=== PATIENT | female | born 1970 | race Caucasian/White ===

== ENCOUNTER 2017-12-09 06:14 | Day surgery (SDC) | payer BC, SELFPAY ==
[2017-12-06 10:21] VITALS: BMI 34.9
[2017-12-09] VITALS (12 sets, daily range): BP systolic 139–157; BP diastolic 73–90; PULSE 91–105; RESP 18–20; TEMP 36.2–43; O2SAT 95–97
[2017-12-09 07:23] LABS: Urine Pregnancy, HCG Qual. Negative (Negative)
--- NOTE | 2017-12-09 07:41 | HMH.ANESCL ---
[facility] Anesthesia Checklist - Structural Data Planned Operative Procedure/s: right shoulder arthroscopy, RCR Consent for Planned Operative Procedure(s) Verified: Yes Verified Documents: Surgical Consent, History and Physical - NPO Status Verified Time NPO: 00:00 - Airway Assessment C-Spine Mobility Assessed: Yes (MP2) TMJ Mobility Assessed: Yes Dentition: Good Dentition - Anesthesia Plan Anesthesia Risk discussed: Yes Anesthesia Plan: Verified ASA Class: II Anesthesia Type: General - Preoperative Comments Pre-Operative Comments: Interscalene block [facility] Anesthesia HX I have reviewed the patient's past medical history: Yes Medical History: Denies:: Cancer, Diabetes Mellitus Type 1, Diabetes Mellitus Type 2, MRSA, Seizures Other Medical History: Reports: Hypothyroidism. Denies: Blood Transfusion Reaction Other Surgeries: No: Pacemaker Amputation: No Fractures: No Comment: bud *Family Hx:: Heart Attack
--- NOTE | 2017-12-09 10:50 | HMH.ANESI ---
[facility] Anesthesia Record Part I Intake, IV Amount: 1,000 Estimated blood loss (mL): 25 Urine output (mL): 800 Blood Pressure: 142/74 SaO2: 97 Pulse Rate: 102 Respiratory Rate: 20 Temperature: 97.1 F Patient is:: Drowsy, Nasal O2, Stable Stable to PACU at:: 10:47
--- NOTE | 2017-12-09 10:52 | P.PN_ITS ---
[facility] Anesthesia Record Part II Discharge Time: 11:17 Destination: Surgical Day Care (OP Surgery) PACU nurse assessment reviewed?: Yes Patient Condition:: Good Anesthesia Complications:: None
--- NOTE | 2017-12-09 10:58 | HMH.OPNOTE ---
Date of procedure: 12/10/17 Pre-op Diagnosis:: R Rotator Cuff Tear R shoulder impingement syndrome Degenerative tear, right shoulder posterior labrum Post-op diagnosis:: same (Same) Procedure performed:: R Rotator Cuff Tear repair. arthroscopic, and R shoulder arthroscopic subacromial decompression of impingement syndrome Arthroscopic debridement, degenerative tear right posterior labrum Surgeon:: Mike Ingram MD Anesthesia: GETA, regional Estimated blood loss (mL): 5 Operative findings:: See operative note. Examination under anesthesia showed the glenohumeral joint to be stable arthroscopic photographs are as follows 001 and 002 demonstrate the rotator cuff tear from the bursal side 003 demonstrates the superior aspect of the glenoid and a portion of the tear from the articular side. 004 demonstrates the biceps tendon 005 through 008 demonstrate the anterior labrum, probing with a spinal needle, and the inferior labrum at approximately the 5 o'clock position for the last photograph. 009 demonstrates a small chondral lesion on the glenoid being removed with a shaver... 010 demonstrates probing of the anterior labrum. 011 shows debridement of the rotator cuff. [id number] shows the suture construct of the rotator cuff repair 016 shows partial debridement of the subacromial space and is taken to demonstrate the prominent anterior spur on the acromion. Unfortunately, additional photographs showing the completed subacromial decompression did not materialize Operative note:: The patient was taken to the operating room and placed in the supine position and carefully positioned on a beachchair positioner. All bony prominences were well-padded. She was prepped and draped in the usual sterile fashion. The operative site was sealed and a posterior portal site selected. A spinal needle was directed into the glenohumeral joint and the joint itself insufflated with approximately 30 mL of normal saline. We then created the posterior portal, inserted the 4 mm arthroscope, and performed an initial examination. We noted that we had directed the scope to the subacromial space and immediately noted the rotator cuff tear. We photographed this, and then redirected the arthroscope into the glenohumeral joint. An examination of the glenohumeral joint was conducted. We created an anterior portal to allow debridement of prominent fraying of the posterior labrum and also to allow more complete evaluation of the superior and anterior labrum. We conducted examination of the biceps tendon, superior middle and inferior glenohumeral ligaments, subscapularis, inferior and posterior labrum, and articular cartilage of both the glenoid and the humeral head. We evaluated the rotator cuff from the articular side as well. The anterior portal was created, we introduced a probe and checked the integrity of the labrum and found no evidence of a tear. There was some fraying of the biceps tendon but no instability. There was prominent fraying of the posterior labrum and introduced a 4 mm shaver and removed the frayed sections of the labrum posteriorly. We then withdrew the shaver and placed in the arthroscope in the subacromial space. We debrided bursa as needed to evaluate the rotator cuff tear and also cleared it from the subacromial space in anticipation of a subacromial decompression. We debrided the torn edge of the rotator cuff. This is a small crescent shaped tear in the supraspinatus with minimal retraction. We visualized the anchor point and elected to use a single swivel lock suture with a mattress stitch. The shaver was used to debride and roughen the bone in preparation for placing the footprint of the cuff onto it. A [employer] suture passer was used to place an [employer] fiber tape in a mattress fashion. We then selected an insertion point for the anchor. The arm was adducted and an entry awl used. We threaded the anchor in place the anchor however noted insecure purchas
--- NOTE | 2017-12-09 11:23 | P.OP_ITS ---
Date of procedure: 12/10/17 Pre-op Diagnosis:: R Rotator Cuff Tear R shoulder impingement syndrome Degenerative tear, right shoulder posterior labrum Post-op diagnosis:: same (Same) Procedure performed:: R Rotator Cuff Tear repair. arthroscopic, and R shoulder arthroscopic subacromial decompression of impingement syndrome Arthroscopic debridement, degenerative tear right posterior labrum Surgeon:: Mike Ingram MD Anesthesia: GETA, regional Estimated blood loss (mL): 5 Operative findings:: See operative note. Examination under anesthesia showed the glenohumeral joint to be stable arthroscopic photographs are as follows 001 and 002 demonstrate the rotator cuff tear from the bursal side 003 demonstrates the superior aspect of the glenoid and a portion of the tear from the articular side. 004 demonstrates the biceps tendon 005 through 008 demonstrate the anterior labrum, probing with a spinal needle, and the inferior labrum at approximately the 5 o'clock position for the last photograph. 009 demonstrates a small chondral lesion on the glenoid being removed with a shaver... 010 demonstrates probing of the anterior labrum. 011 shows debridement of the rotator cuff. [id number] shows the suture construct of the rotator cuff repair 016 shows partial debridement of the subacromial space and is taken to demonstrate the prominent anterior spur on the acromion. Unfortunately, additional photographs showing the completed subacromial decompression did not materialize Operative note:: The patient was taken to the operating room and placed in the supine position and carefully positioned on a beachchair positioner. All bony prominences were well-padded. She was prepped and draped in the usual sterile fashion. The operative site was sealed and a posterior portal site selected. A spinal needle was directed into the glenohumeral joint and the joint itself insufflated with approximately 30 mL of normal saline. We then created the posterior portal, inserted the 4 mm arthroscope, and performed an initial examination. We noted that we had directed the scope to the subacromial space and immediately noted the rotator cuff tear. We photographed this, and then redirected the arthroscope into the glenohumeral joint. An examination of the glenohumeral joint was conducted. We created an anterior portal to allow debridement of prominent fraying of the posterior labrum and also to allow more complete evaluation of the superior and anterior labrum. We conducted examination of the biceps tendon, superior middle and inferior glenohumeral ligaments, subscapularis, inferior and posterior labrum, and articular cartilage of both the glenoid and the humeral head. We evaluated the rotator cuff from the articular side as well. The anterior portal was created, we introduced a probe and checked the integrity of the labrum and found no evidence of a tear. There was some fraying of the biceps tendon but no instability. There was prominent fraying of the posterior labrum and introduced a 4 mm shaver and removed the frayed sections of the labrum posteriorly. We then withdrew the shaver and placed in the arthroscope in the subacromial space. We debrided bursa as needed to evaluate the rotator cuff tear and also cleared it from the subacromial space in anticipation of a subacromial decompression. We debrided the torn edge of the rotator cuff. This is a small crescent shaped tear in the supraspinatus with minimal retraction. We visualized the anchor point and elected to use a single swivel lock suture with a mattress stitch. The shaver was used to debride and roughen the bone in preparation for placing the footprint of the cuff onto it. A scorpion suture pa
--- NOTE | 2017-12-09 15:04 | PC.NURSE ---
1105-MEDICATED W/PHENERGAN 6.25MG IV ORDERED PER ANESTHESIA FOR NAUSEA. SEE MAR FOR DETAILS.
--- NOTE | 2017-12-09 15:19 | PC.NURSE ---
1127-PT REPORTS CONTINUED NAUSEA. MEDICATED PER ANESTHESIA W/PHENERGAN 6.25MG IV. SEE MAR FOR DETAILS.
--- NOTE | 2017-12-09 15:28 | PC.NURSE ---
1134-PT TRANSPORTED TO POST OP VIA STRETCHER W/RAILS UP AND LEFT IN CARE OF WALE HACKETT WITH BED LOCKED IN LOWEST POSITION. VSS. PT STABLE.
== END 2017-12-09 12:05 | disposition home or self-care (01) ==
PROVIDERS: Family Provider Family Medicine; PCP Family Medicine; Visit Provider Orthopaedic Surgery
PROC: (CPT 29827; principal; 2017-12-09 07:30)
DX: M75.41 Impingement syndrome of right shoulder (principal); M75.111 Incomplete rotator cuff tear or rupture of right shoulder, not specified as traumatic
CPT/HCPCS: 29827; 29823; 81025; 96374; C1713; J2405

== ENCOUNTER 2018-04-08 07:00 | Outpatient (RCR) | payer BC, SELFPAY ==
--- NOTE | 2017-12-31 09:32 | HMH.PTOPEV ---
Rehab Outpatient Evaluation Rehab OP Evaluation Start: 12/31/17 09:14 Freq: Status: Active Protocol: Document 12/31/17 09:15 TFRY (Rec: 12/31/17 09:29 TFRY [id number]) Electronically Signed By Neisha Sahu OT 12/31/17 09:15 Outpatient Therapy Subjective History Subjective History THIS IS A 47 YEAR OLD RIGHT HANDED FEMALE REFERRED TO OCCUPATIONAL THERAPY S/P RIGHT ROTATOR CUFF REPAIR, SAD. PATIENT STATES THAT SHE INJURIED HER SHOULDER IN 2016 AND UNDERWENT SURGERY ON December2017. Chief Complaint Pain Stiff Symptom Type Sharp Stabbing Shooting Symptoms Relieved By Rest/Positioning Symptoms Aggravated By Physical Activity Prior Functional Limitations None Current Functional Limitations Reaching Lifting Housework Dressing Symptom Description Activity Dependent Level of pain today (0-10) 2 Pain scale - at its best (0-10) 0 Pain scale - at its worst (0-10) 10 Shoulder/Elbow Eval Shoulder Objective Measurements Palpation Tenderness tenderness shoulder exam standard right Shoulder ROM Right Shoulder ROM Limitations Pain Shoulder Abduction Passive Range of 0-90 Motion (degrees) Shoulder Flexion Passive Range of Motion 0-80 (degrees) Shoulder External Rotation Passive Range NT of Motion (degrees) Shoulder Internal Rotation Passive Range WFL IN GRAVITY ELIM. of Motion (degrees) pain with passive ROM shoulder exam right standard decreased ROM shoulder exam standard right Shoulder MMT Shoulder Abduction Strength Grade 2+ Poor+ Shoulder Strength Reason Not Measured Orthopedic Precautions Elbow Objective Measurements Outpatient Therapy Assessment Impairments Problems/Impairmments Impaired Range of Motion Impaired Strength Impaired Lifting Impaired Dressing Impaired Shower/Bathing Impaired Household Care Impaired Work Activities Impaired Desk/Computer Activities Subjective C/O Pain Prognosis Rehab Potential Good Clinical Impression Consistent with Diagnosis Yes Short Term Goals Number of Weeks
--- NOTE | 2018-03-04 08:39 | HMH.RHREAS ---
Rehab Reassessment Rehab OP Re-assessment Start: 03/04/18 08:30 Freq: Status: Active Protocol: Document 03/04/18 08:30 TFRY (Rec: 03/04/18 08:38 TFRY [id number]) Electronically Signed By Neisha Sahu OT 03/04/18 08:30 Rehab Re-assessment Subjective Subjective It is 80% better. Objective Objective Notes Right Shoulder - AROM WFL throughout Right Shoulder - Strength - Flexion - 3+/5 Abduction - 3+/5 Internal Rotation - 3/3+/5 External Rotation - 3/3+/5 Pain - 4 on 0-10 scale ADL's independent per patient report Assessment Progress Assessment Progressing as Expected Assessment Notes AROM and strength have improved. Patient reports less pain. Patient goals met AROM and ADL goals are met. Goals Not Met Strength goal not met. Plan Plan Continue OT toward unmet goals . Frequency of Therapy 2x per week Duration of therapy 5 weeks Time and Billing Re-Eval Time 5 Re-Eval Billing Units 0 PHYSICIAN CERTIFICATION: I certify the specified therapy services for Daisy Fritz are required, authorized, and reviewed every 30 days.
== END 2018-04-08 07:01 | disposition home or self-care (01) ==
LOC: OT 07:00
PROVIDERS: Family Provider Family Medicine; PCP Family Medicine; Visit Provider Orthopaedic Surgery
DX: Z48.89 Encounter for other specified surgical aftercare (principal); Z98.890 Other specified postprocedural states
CPT/HCPCS: 97014; 97110; 97140; 97163; 97164; 97165; G0283

== ENCOUNTER 2024-03-11 12:56 | Outpatient (CLI) | payer OTHER, SELFPAY ==
--- NOTE | 2024-03-11 13:03 | CA_ITS ---
FINAL REPORT TECHNIQUE: Color Doppler, duplex Doppler and compression sonography of the right lower extremity venous system was performed. CLINICAL HISTORY: VARICOSE VEINS,PAIN RLE FINDINGS: There is no evidence of deep venous thrombosis from the level of the groin to the calf. The veins are patent and compressible. IMPRESSION: No evidence of deep venous thrombosis right lower extremity. Reviewed, Interpreted and Dictated by Rolo Emerson III, MD Transcribed by Abril Orr Authenticated and [facility]
== END 2024-03-11 23:59 | disposition home or self-care (01) ==
LOC: RT 13:01
PROVIDERS: PCP Emergency Medicine; Visit Provider Nurse Practitioner
DX: I83.813 Varicose veins of bilateral lower extremities with pain (principal)
CPT/HCPCS: 93971

== ENCOUNTER 2025-03-25 09:31 | Day surgery (SDC) | payer OTHER, SELFPAY ==
[2025-03-24 10:05] VITALS: BMI 39.3
[2025-03-25] VITALS (7 sets, daily range): BP systolic 104–145; BP diastolic 59–87; PULSE 69–87; RESP 16–17; TEMP 36.2–36.3; O2SAT 96–100
[2025-03-25] MEDS: LACTATED RINGERS 1000ML 1,000 ML 50 ML IV (10:20)
--- NOTE | 2025-03-25 10:40 | EXP.ANES.CKL ---
[facility] Disclaimer: The information contained in this section may have been updated after the patient was seen, as this information can be updated by other users. 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 current occupational exposures/hazards: No caffeine: Yes [facility] Anesthesia Checklist Patient Identification Patient Identification: Arm Band and Verbal (Name & ) Structural Data Admitted From: Home Planned Operative Procedure/s: colonoscopy Consent for Planned Operative Procedure(s) Verified: Yes Verified Documents: Surgical Consent NPO Status Verified Time NPO: 00:00 Chart Verification Results Verified: None Additional verifications Anesthesia Reactions: No Hx Blood Transfusions: No Blood Transfusion Reaction: No Previous Colonoscopy: No Airway Assessment Mallampati Score:: Class II C-Spine Mobility Assessed: Yes TMJ Mobility Assessed: No Dentition: Good Dentition Neurological Assessment Level of Consciousness: Awake, Alert and Appropriate Hx Seizures: No Numbness or tingling in extremities: No Anesthesia Plan Anesthesia Risk discussed: Yes Anesthesia Plan: Verified ASA Class: II Anesthesia Type: MAC
--- NOTE | 2025-03-25 11:02 | EXP.ANES.CKL ---
[facility] Disclaimer: The information contained in this section may have been updated after the patient was seen, as this information can be updated by other users. 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 Anesthesia Checklist Patient Identification Patient Identification: Arm Band and Verbal (Name & ) Structural Data Admitted From: Home Planned Operative Procedure/s: colonoscopy Consent for Planned Operative Procedure(s) Verified: Yes Verified Documents: Surgical Consent NPO Status Verified Time NPO: 00:00 Chart Verification Results Verified: None Additional verifications Patient : No Anesthesia Reactions: No Hx Blood Transfusions: No Blood Transfusion Reaction: No Airway Assessment Mallampati Score:: Class I C-Spine Mobility Assessed: Yes TMJ Mobility Assessed: No Dentition: Good Dentition Neurological Assessment Level of Consciousness: Awake, Alert and Appropriate Hx Seizures: No Numbness or tingling in extremities: No Anesthesia Plan Anesthesia Risk discussed: Yes Anesthesia Plan: Verified ASA Class: II Anesthesia Type: MAC
--- NOTE | 2025-03-25 11:20 | P.HP_ITS ---
History of Present Illness *Admission Date: 03/25/25 *Reason for visit:: Screening for colon cancer *History of present illness: Mrs. Fritz is a 54-year-old female who is here for initial screening colonoscopy. The examination is deemed medically necessary for screening colonoscopy. The rome devine has been seen, interviewed and examined prior to the procedure by both myself and the anesthesia provider. [facility] Disclaimer: The information contained in this section may have been updated after the patient was seen, as this information can be updated by other users. 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 current occupational exposures/hazards: No caffeine: Yes Have you lived/traveled outside US in past 30 days?: No Contact w/someone who lives/traveled outside US past 30 days?: No Exposure to someone with infectious disease in past 14 days?: No Do you have a fever (greater than 100.4 F or 38 C)?: No Have you tested positive for COVID-19: No Exposed to someone with COVID-19 in past 14 days?: No Do you have a sore throat?: No Do you have a cough?: No Do you have any weakness?: No Do you have any diarrhea?: No Are you experiencing any unusual bleeding?: No Do you have any muscle aches/pain?: No Do you have any abdominal pain?: No Are you experiencing loss of taste or smell?: No Other Medical History Have you received the Flu Vaccine for this season: Yes Have you received the Pneumonia Vaccine: No Review of Systems Review of Systems Review of systems (narrative): Negative *Cardiovascular Comments: Negative *Gastrointestinal Comments: Negative *Genitourinary Comments: Negative *Musculoskeletal Comments: Negative *Neurologic Comments: Negative Meds Home Medications and Allergies Home Medications ?Medication ?Instructions ?Recorded ?Confirmed ?Type levothyroxine 100 mcg tablet 100 mg PO DAILY hypothyroid 12/06/17 03/25/25 History atorvastatin 20 mg tablet 20 mg PO DAILY 12/06/21 03/25/25 History sodium,potassium,mag sulfates 17.5 See Rx Instructions PO .COMPLEX 01/01/25 03/25/25 Rx gram-3.13 gram-1.6 gram oral soln #354 mL (Suprep Bowel Prep Kit) New Prescriptions to Start Prescriptions: Allergies Allergy/AdvReac Type Severity Reaction Status Date / Time No Known Allergies Allergy Verified 12/06/21 18:12 Exam Data for Last 24 hours Vital signs and Labs for Last 24 Hours: Temp Pulse Resp BP Pulse Ox O2 Del Method 97.4 F L 78 16 140/87 96 Room Air 03/25/25 10:10 03/25/25 10:10 03/25/25 10:10 03/25/25 10:10 03/25/25 10:10 03/25/25 10:10 I & O for Last 24 hours: Intake & Output 03/22/25 03/23/25 03/24/25 03/25/25 23:59 23:59 23:59 23:59 Weight 215 lb *Routine HEENT Exam Head: Present normocephalic Eye: Present EOMI and PERRL ENT: Present mucous membranes moist *Routine Neck Exam Neck: Present supple *Routine Respiratory Exam Respiratory: Present CTA bilaterally *Routine Cardiovascular Exam Cardiovascular: Present RRR *Routine Abdominal Exam Abdominal: Present soft and normoactive bowel sounds; Absent tenderness *Routine Rectal Exam Rectal:: deferred *Routine Genitalia Exam Genitalia:: deferred *Routine Extremities Exam Extremities: Absent cyanosis, clubbing or edema *Routine Skin Exam Skin: Present warm; Absent rash *Routine Neurological Exam Neurological: Present alert and oriented X3 Assessment and Plan *Assessment and plan (1) Screening for colon cancer: Status: Acute Category: Medical Code(s): Z12.11 - Encounter for screening for malignant neoplasm of colon Plan A/P: 1. Screening for colon cancer is the preprocedural diagnosis. The patient will be anesthetized/sedated using MAC sedation. The patient has been seen and examined. Cardiac and lung assessment prior to the examination is stable. Proceed with planned screening colonoscopy.
--- NOTE | 2025-03-25 11:27 | HMH.PROCNOTE ---
[facility] Procedure Note Date: 03/25/25 Time: 11:41 Procedure Note:: Colonoscopy Procedure Report: Colonoscopy with cold snare polypectomy Endoscopist: Amari Aguilar II, MD Referring physician: Ina Mckeon MD, [address] [place] [id number]/Jojo Live M.D. Date of Procedure: March 25, 2025 Equipment: Olympus 190 variable stiffness pediatric colonoscope Sedation: MAC sedation Indication: Mrs. Fritz is a 54-year-old female who is here for initial screening colonoscopy. She reports no abdominal pain, weight loss, change in her bowel habits or rectal bleeding. She reports no family history of colon cancer. Procedure: Prior to the procedure, a history and physical exam was performed, and patient's medications and allergies were reviewed. The risks, benefits and alternatives of the sedation and procedure were discussed with the patient. All questions were answered and informed consent was obtained. The patient was brought to the procedure room. Patient identification and proposed procedure were verified by the physician and the nurse. The patient was placed in a left lateral decubitus position and the scope was passed under direct vision. Throughout the procedure, the patient's blood pressure, pulse, and oxygen saturations were monitored continuously. The colonoscopy was accomplished without difficulty. The patient tolerated the procedure well. Findings: On digital rectal examination there was normal rectal tone. There were no external hemorrhoids. The colonoscope was introduced through the anal canal to the rectum and advanced to the cecum. The ileocecal valve and appendiceal orifice were identified. The scope was advanced a short distance into the ileum which appeared grossly normal. The scope was then withdrawn into the colon. There was a single 4 mm polyp in the descending colon removed via cold snare polypectomy. The cecum, ascending, transverse, descending, sigmoid and rectum were grossly normal. There were no mucosal abnormalities identified. Upon retroflexion within the rectum there were grade 1-2 internal hemorrhoids with a small hypertrophied anal papilla. The preparation was excellent throughout with [place] Preparation Score of 9. The cecal time was 12 minutes. Impression: 1. Diminutive descending colon polyp (4 mm) Plan: I will follow-up the polyp histology and recommend repeat surveillance colonoscopy again in 7 years if the polyp is adenomatous.
== END 2025-03-25 12:18 | disposition home or self-care (01) ==
PROVIDERS: PCP Family Medicine; Visit Provider Internal Medicine Gastroenterology
PROC: 0DJD8ZZ Inspection of Lower Intestinal Tract, Via Natural or Artificial Opening Endoscopic (ICD-10-PCS; CPT 45378; principal; 2025-03-25 11:00)
DX: D12.4 Benign neoplasm of descending colon (principal); K64.8 Other hemorrhoids; Z12.11 Encounter for screening for malignant neoplasm of colon
CPT/HCPCS: 45385; J7120

== ENCOUNTER 2025-11-08 15:03 | Outpatient (CLI) | payer OTHER, SELFPAY ==
--- NOTE | 2025-11-08 | CA_ITS ---
FINAL REPORT TECHNIQUE: Multiple transverse and longitudinal images were performed of the right femoral-popliteal deep venous system with augmentation and compression maneuvers. CLINICAL HISTORY: Rt groin pain x 1 month. Pain is worse with sitting. Patient had bilateral lower extremity vein extraction 09/2024. HLD. FINDINGS: Right lower extremity duplex ultrasound demonstrates normal flow in the deep venous system. There is no abnormal echogenicity to suggest thrombus. There is normal compression and augmentation. IMPRESSION: No evidence of right DVT. Reviewed, Interpreted and Dictated by Asher Griffith MD Transcribed by Abril Orr Authenticated and [facility]
--- NOTE | 2025-11-08 15:34 | XR_ITS ---
PROCEDURE INFORMATION: Exam: XR Right Femur Exam date and time: 11/08/2025 3:37 PM Age: 55 years old Clinical indication: Pain; Thigh; Right; Additional info: Right inguinal pain TECHNIQUE: Imaging protocol: Radiologic exam of the right femur. Views: 2 views. COMPARISON: US - CA VENOUS DOPPLER LE RT 11/08/2025 3:20 PM FINDINGS: Limitations: Superior segments of the femur (head and neck) were not included. Bones/joints: The bone density is normal for this patient's age. No acutely displaced fractures. No joint dislocation. No aggressive osseous lesions. Soft tissues: No acute soft tissue findings. IMPRESSION: No acute findings.
--- NOTE | 2025-11-08 15:35 | XR_ITS ---
PROCEDURE INFORMATION: Exam: XR Right Hip Exam date and time: 11/08/2025 3:37 PM Age: 55 years old Clinical indication: Hip pain; Right hip; Inguinal pain TECHNIQUE: Imaging protocol: Radiologic exam of the right hip. Views: 2 or 3 views hip with pelvis when performed. COMPARISON: CR XR LUMBAR SPINE MIN 4V 11/08/2025 3:37 PM FINDINGS: Bones/joints: Mild osteoarthritis involving the bilateral hips, as manifested by mildly decreased joint space and marginal osteophyte formation. There are mild degenerative changes of the sacroiliac joints. Prominence/overriding of the bilateral acetabular roofs, more so on the right, as can be seen with pincer type femoroacetabular morphology. No acutely displaced fractures. No joint dislocation. No aggressive osseous lesions. Soft tissues: No acute soft tissue findings. Organs: IUD is present. IMPRESSION: 1. No acute findings. 2. Incidental findings as above.
--- NOTE | 2025-11-08 15:36 | XR_ITS ---
PROCEDURE INFORMATION: Exam: XR Lumbosacral Spine Exam date and time: 11/08/2025 3:37 PM Age: 55 years old Clinical indication: Low back pain; Additional info: Inguinal pain TECHNIQUE: Imaging protocol: Radiologic exam of the lumbosacral spine. Views: 4 or 5 views. COMPARISON: CR XR HIP RT 2-3V W/PELVIS 11/08/2025 3:37 PM FINDINGS: Bones/joints: No pars interarticularis defects. Normal anatomic alignment. The bone density is normal for this patient's age. Preserved intervertebral disc spaces. Small multilevel anterior osteophytes. The spinal canal is patent. Facet joints have mild degenerative hypertrophy and sclerosis. No acutely displaced fractures. No joint dislocation. No aggressive osseous lesions. Soft tissues: No acute soft tissue findings. Organs: IUD is present. Surgical clips are present in the right upper quadrant, consistent with previous cholecystectomy. IMPRESSION: 1. No acute findings. 2. Mild degenerative changes.
== END 2025-11-08 23:59 | disposition home or self-care (01) ==
LOC: RT 15:06
PROVIDERS: PCP Family Medicine; Visit Provider Nurse Practitioner
DX: M47.817 Spondylosis without myelopathy or radiculopathy, lumbosacral region (principal); M16.11 Unilateral primary osteoarthritis, right hip; M16.12 Unilateral primary osteoarthritis, left hip; M25.751 Osteophyte, right hip; M46.1 Sacroiliitis, not elsewhere classified; Z97.5 Presence of (intrauterine) contraceptive device; R10.31 Right lower quadrant pain; M79.2 Neuralgia and neuritis, unspecified
CPT/HCPCS: 72110; 73502; 73552; 93971

== ENCOUNTER 2025-11-12 16:38 | Outpatient (CLI) | payer OTHER, SELFPAY ==
--- NOTE | 2025-11-12 | MR_ITS ---
PROCEDURE INFORMATION: Exam: MR Right Lower Extremity Joint Without and With Contrast; Hip Exam date and time: 11/12/2025 4:44 PM Age: 55 years old Clinical indication: Pain; Hip; Right; Additional info: Worsening right hip pain TECHNIQUE: Imaging protocol: Magnetic resonance imaging of the right lower extremity joint without and with contrast. Exam focused on the hip. Contrast material: PROHANCE; Contrast volume: 20 ml; Contrast route: IV; COMPARISON: CR XR HIP RT 2-3V W/PELVIS 11/08/2025 3:37 PM FINDINGS: Bones/joints: No acute fracture or malalignment. No bone lesions. Joint spaces are unremarkable. Articular cartilage is normal. No joint effusion. Labrum: Unremarkable. No tear. Bursae: There is mild edema in both trochanteric bursae not significant bursal fluid. TENDONS: Tendons of iliopsoas group: Unremarkable. No evidence of tear. Tendons of medial compartment of thigh: Unremarkable. No evidence of tear. Tendons of lateral rotators of hip: Unremarkable. No evidence of tear. Tendons of gluteal group: Unremarkable. No evidence of tear. Soft tissues: Unremarkable. Reproductive: There is an IUD in the uterus. Small cervical nabothian cysts. Uterus and adnexa are unremarkable. IMPRESSION: 1. Mild edema in both trochanteric bursae without bursal effusion. 2. Otherwise unremarkable MRI.
[2025-11-12] MEDS: GADOTERIDOL INJ 20ML SYRINGE 20 ML IV (17:05)
== END 2025-11-12 23:59 | disposition home or self-care (01) ==
LOC: RAD 16:38
PROVIDERS: PCP Family Medicine; Visit Provider Nurse Practitioner
DX: R60.0 Localized edema (principal); R93.6 Abnormal findings on diagnostic imaging of limbs
CPT/HCPCS: 73723; A9576

== ENCOUNTER 2025-11-22 07:35 | Outpatient (CLI) | payer OTHER, SELFPAY ==
--- NOTE | 2025-11-22 | MR_ITS ---
FINAL REPORT TECHNIQUE: Multiplanar MR without gadolinium enhancement CLINICAL HISTORY: PAIN right hip pain prior mri on right hip was negative COMPARISON: None FINDINGS: Sagittal images show normal vertebral height. Alignment is normal. Marrow signal pattern is unremarkable. L1-2: Unremarkable L2-3: Mild facet arthropathy is present, without a focal disc protrusion. L3-4: A moderate annular bulge and facet arthropathy are present, with mild central canal stenosis and mild bilateral neural foraminal narrowing. L4-5: A moderate annular bulge and facet arthropathy are present, with mild central canal stenosis and mild bilateral neural foraminal narrowing. L5-S1: Moderate facet arthropathy is present, with mild bilateral neural foraminal narrowing. IMPRESSION: Multilevel degenerative changes present, most pronounced at the L3-4 and L4-5 levels with moderate annular bulges and facet arthropathy, and mild canal and neural foraminal narrowing. Reviewed, Interpreted and Dictated by Hilda Morgan MD Transcribed by Emily Ashton Authenticated and . [facility]
--- OUTSIDE RECORDS SUMMARY | 2025-11-22 07:37 | XMS_ITS | Data Portability ---
Author Organization [facility] CELESTINE Lema PENDLETON CLOSED Address [address] [place] [address] Assessment No assessment recorded. 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 10:15A M NOHELIA DE LOS SANTOS DO Not available Not available Not available Lab pap, LB 2023 024 [facility], [address] [place] [address], [phone], 10/23/2024 15:14:35 HPV DNA, high-risk 2023 024 [facility], [address] [place] [address], [phone], 10/15/2024 14:10:20 CT + NG RNA, PCR, unspecifi ed specimen 2021 022 [facility], [address] [place] [address], [phone], 10/04/2022 19:51:06 trichomon as vaginalis RNA 2021 022 [facility], [address] [place] [address], [address], 10/04/2022 09:57:50 test, urine 2021 022 [facility], [address] [facility] , [place] [address], [place], [address], 10/04/2022 09:49:29 FSH (follicle -stimulat ing hormone), serum 2021 [facility], [address] [place], [address], 09/27/2022 11:19:00 estradiol , serum 2021 [facility], [address] [place], [address], 09/27/2022 11:18:59 Referral None recorded. Procedures colonosco py screening (PROC) 2023 024 API-[id number] [facility], [address] , [address], [place], [address], 10/16/2024 09:51:40 Surgeries None recorded. Imaging US, transvagi nal 2021 [email or web address] [facility], [address] , [place], [address], 10/04/2022 09:55:55 Medication Orders Kyleena 17.5 mcg/24 hr (up to 5 years) 19.5 mg intrauter ine device 2021 Not available 10/04/2022 09:53:58 Patient TargetsNo targets recorded. Patient InstructionsNo instructions recorded. Reason for Referral None Reported. Results Created Date Observation Date Name Description Value Unit Range Abnormal Flag Note LastModifiedBy Organization Detail LastModifiedTime 09/27/20 22 09/27/2022 ESTRA DIOL estradiol 33.8 pg/mL 0.0-39 8.0 normal Refer ence range is based on non-p regna nt women . NOTE: Due to the risk of cross -reac tivit y, the Melonie Estra diol assay used by our labor devika mcneil d not be order ed when monit oring estra diol level s in patie nts being treat ed with Fulve stran t. An alter dmitriy metho d such as LC/MS , which is not expec tanisha to show cross -reac tivit y to Fulve stran t, shoul d be used to measu re estra diol frankie ntrat ions. Stero id drugs may inter fere with this test. ESTRA DIOL EXPEC TANISHA VALUE S HEALT HY WOMEN : FOLLI CULAR PHASE 12.4 - 233 pg/mL OVULA TION PHASE 41.0 - 398 pg/mL LUTEA L PHASE 22.3 - 341 pg/mL POSTM ENOPA USE < 5.0 - 138 pg/mL HEALT HY PREGN ANT WOMEN : 1st TRIME STER 154 - 3243 pg/mL 2nd TRIME STER 1561 - 21,28 0 pg/mL 3rd TRIME STER 8525 - > 30,00 0 pg/mL . Not Available [facility] [address] [place] [address], [address], 09/27/2022 11:18:59 09/27/20 22 09/27/2022 FOLLI DENTON STIM. HORMO NE follicle stim. hormone 24.2 mIU/m L 1.7-13 4.8 normal FSH EXPEC TANISHA VALUE S FEMAL ES: FOLLI CULAR PHASE : 3.5 - 12.5 MIU/M L OVULA TION PHASE : 4.7 - 21.5 MIU/M L LUTEA L PHASE : 1.7 - 7.7 MIU/M L POST MENOP AUSE: 25.8 - 134.8 MIU/M L . Not Available [facility] [address] [place] [address], [address], 09/27/2022 11:19:00 10/04/20 22 10/04/2022 TRICH OMONA S VAGIN ULISES source Cervic al swab normal Not Available [facility] [place], [address], 10/04/2022 20:01:06 10/04/20 22 10/05/2022 TRICH OMONA S VAGIN ULISES trichomonas vaginalis Negati ve negati ve normal Not Available [facility] [place], [address], 10/04/2022 20:01:06 10/04/20 22 10/05/2022 CHLAM YDIA/ GC, RNA chlamydia trachomatis Negati ve negati ve normal Not Available [facility] [address] [place] [address], [address], 10/04/2022 19:51:06 10/04/20 22 10/05/2022 CHLAM YDIA/ GC, RNA N. gonorrhoeae Negati ve negati ve normal Not Available [facility] [address] [place], [address], 10/04/2022 19:51:06 10/04/20 22 10/04/2022 pregn khushbu test, urine HCG negati ve Not Available [address], [place], [address], 10/04/2022 09:42:22 10/04/20 22 10/04/2022 pregn khushbu test, urine Specific [place] * Not Available [address], [place], [address], 10/04/2022 09:42:22 10/04/20 22 10/04/2022 pregn khushbu test, urine QC OK Not Available [address], [place], [address], 10/04/2022 09:42:22 10/13/20 24 10/15/2024 HPV, HIGH RISK high risk HPV Negati ve negati ve normal This assay detec ts E6/E7 viral messe nger RNA (mRNA ) from 14 high- risk HPV types (16,1 8,31, 33,35 ,39,4 5,51, 52,56 , 58,59 ,66,6 8) witho ut diffe renti ation . Sensi tivit y may be affec tanisha by speci men colle ction metho ds, stage of infec tion, and the prese nce of inter ferin g subst ances . Resul ts shoul d be inter prete d in conju nctio n with other avail able labor atory and clini lizbeth data. A negat deric Aptim a HPV assay resul t does not exclu de the possi bilit y of cytol ogic abnor malit ies or futur e or under lying CIN2, CIN3, or cance r. This test is inten ded for medic al purpo ses and has not been evalu ated in cases of suspe cted abuse . This assay is not inten ded for use as a scree jg devic e for women under age 30 with joselito l cervi lizbeth cytol ogy. The Aptim a HPV assay is not inten ded to subst itute for regul ar cervi lizbeth cytol ogy. Test metho dolog y is Nucle ic Acid Ampli ficat ion (NAAT ) Not Available [facility] [address] [facility], [place], [address], 10/15/2024 14:10:20 10/13/20 24 10/13/2024 PAP SMEAR Pap smear SEE BELOW normal Depar tment of Patho logy GYNEC OLOGI LIZBETH CYTOL OGY REPOR T NAME: DERECK KRAUS PATHO LOGY NO.: [id number] Copy to: SOUR E OF SPECI MEN: CERVI LIZBETH/E NDOCE RVICA L-THI N PREP RELEV ANT HISTO RY: No LMP given . Comme nt: HPV CO-TE STING SPECI MEN ADEQU ACY SATIS FACTO RY FOR EVALU ATION . ENDOC ERVIC AL/TR ANSFO RMATI ON ZONE COMPO NENT PRESE NT GENER AL CATEG ORIZA TION NEGAT DERIC FOR INTRA EPITH ELIAL LESIO N OR MALIG SCOTT RELAT ED LABOR ATORY RESUL TS Test Name Resul t Colle cted D and T HIGH RISK HPV Negat deric 10/13 9:[address], CT (ASCP ) Cary d Out Date: 10/23 15:14 Cervi lizbeth/v agina l cytol ogy is a scree jg test with a recog nized false negat deric rate. New techn ologi es may decre ase, but will not elimi dmitriy false negat deric resul ts. Regul ar cytol ogy scree jg is recom francesca d to minim ize false negat deric resul ts. The ThinP rep(R ) Imagi ng syste m is used to carine t in prima ry cervi lizbeth cance r scree jg of ThinP rep(R ) Pap test slide s. Page 1 of 1 Not Available [facility] [address] [place], [address], 10/23/2024 15:14:34 09/27/20 22 09/27/2022 MAMMO , scree jg, tomos ynthe sis, bilat eral, w/ CAD [facility] [address] [place] [address] Gregor rock Name: MANE rock : 971 Age: 51 years Patigenaro rock Orderi ng Provid er: LINDSE Y FILIBERTO EXAM DATE: 2021 EXAM: MG SCREEN ING DARLEEN MAMMOG MELANY INDICA TION: Routin e screen ing. PROCED URE: Multis lice imagin g of both breast s was perfor med in standa rd projec tions using Hologi c Seleni a Dimens ions tomosy nthesi s equipm ent (3D mammog emily) . 2D images were create d from the 3D datase t using C-View softwa re. The study was read with the assist ance of Comput er Aided Detect ion (CAD) softwa re. COMPAR ADRIAN: This was compar ed with previo us mammog rashel dated 2020, 2019, 2018 FINDIN GS: The breast s are hetero geneou sly dense. This may lower the sensit ivity of mammog emily. A hetero geneou s nodula r breast tissue . There is the sugges tion of increa sed nodula rity in the upper medial right breast recomm end spot views of this area. If any abnorm ality persis ts recomm end ultras ound . Left breast stable IMPRES GI: BI-RAD S catego ry 0, Incomp lete. Needs additi onal imagin g evalua tion. Result s were mailed or given to the patien t. Interp reted By: Kareem Wilburn MD Electr onical ly Signed By: Kareem Wilburn MD on 2021 10:44 AM [facility] [address], [place], [address], 09/30/2022 23:14:41 10/18/20 22 10/18/2022 MAMMO , diagn ostic , tomos ynthe sis, unila teral , w/ CAD [place] [address] [place] [address] Patigenaro t Name: MANE rock : 971 Age: 52 years Patigenaro t Orderi ng Provid er: LINDSE Y FILIBERTO EXAM DATE: 2021 EXAM: MG RT DIAG DARLEEN CALLBA CK INDICA TION: Nodule PROCED URE: Multis lice imagin g of the right breast was perfor med includ ing spot compre ssion and mediol ateral views using Hologi c Seleni a Dimens ions tomosy nthesi s equipm ent (3D mammog emily) . 2D images were create d from the 3D datase t using C-View softwa re. COMPAR ADRIAN: This is compar ed with prior mammog rashel dated 2020, 2021, 2020, 2019, 019 FINDIN GS: The right breast is hetero geneou sly dense. This reduce s sensit ivity of mammog emily. The breast parenc hyma is quite nodula r howeve r with the benefi t of spot compre ssion imagin g and additi onal views, no defini te domina nt true nodule or interv al change is noted. The findin g on recent screen ing appear s to relate to summat ion IMPRES GI: BI-RAD S catego ry 2, Benign . Recomm end follow -up screen ing mammog melany in one year, on schedu le COMMEN T: Findin gs and recomm endati ons were discus sed with the patien t. 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 TECHNI QUE: Multip le sonogr aphic images of the pelvis were obtain ed throug h transv aginal route. COMPAR ADRIAN: None. FINDIN GS: UTERUS : Size = 9.9 x 5.2 x 6.8 cm. EMS thickn ess = 9 mm. Anteve rted, antefl exed, normal in size. No myomet rial abnorm ality seen. IUD is seen in the endome trial canal. RIGHT ADNEXA : Right ovary was not visual ized. No adnexa l mass. LEFT ADNEXA : Ovary size = 2.2 x 1.1 x 2.6 cm. Normal in size and appear ance. No adnexa l mass. CUL-DE -SAC: No fluid or mass IMPRES GI: 1. Satisf actory placem ent of IUD. 2. No signif icant abnorm ality. Interp reted By: Pippa Wilburn MD Electr onical ly Signed By: Pippa Wilburn MD on 022 11:42 AM [facility] [address] [facility] [address], [place], [address], 11/11/2022 09:31:59 10/02/20 23 10/02/2023 MAMMO , scree jg, tomos ynthe sis, bilat eral, w/ CAD [place] [address] [address] Patigenaro rock Name: MANE rock : 971 Age: 52 years Gregor rock Orderi ng Provid er: LINDSE Y FILIBERTO EXAM DATE: 2022 EXAM: MG SCREEN ING DARLEEN MAMMOG MELANY INDICA TION: Routin e screen ing. PROCED URE: Multis lice imagin g of both breast s was perfor med in standa rd projec tions using Hologi c Seleni a Dimens ions tomosy nthesi s equipm ent (3D mammog emily) . 2D images were create d from the 3D datase t using C-View softwa re. The study was read with the assist ance of Comput er Aided Detect ion (CAD) softwa re. COMPAR ADRIAN: This was compar ed with previo us mammog rashel dated 2021, 2021, 2020, 02/03/20, 2019 FINDIN GS: The breast s are hetero geneou sly dense. This may lower the sensit ivity of mammog emily. There is no suspic ious mass or cluste r of calcif icatio ns. No farzad ectura l distor tion. Scatte red areas of nodula r asymme try and hetero geneit y with grossl y stable patter n IMPRES GI: BI-RAD S catego ry 2, Benign . There is no eviden ce of malign khushbu. Screen ing mammog rashel are recomm ended in one year. Result s were mailed or given to the gregor rock. Interp reted By: Kareem Wilburn MD Electr onical ly Signed By: Kareem Wilburn MD on 023 10:10 AM [facility] [address] [place] [address], [phone], 10/03/2023 18:45:15 10/13/20 24 10/13/2024 MAMMO , scree jg, tomos ynthe sis, bilat eral, w/ CAD [facility] [address] [place] [address] Patigenaro t Name: MANE rock : 971 Age: 54 years Patigenaro t Orderi ng Provid er: NELLI DE LOS SANTOS EXAM DATE: 2023 EXAM: MG SCREEN ING DARLEEN MAMMOG MELANY INDICA TION: Routin e screen ing. PROCED URE: Multis lice imagin g of both breast s was perfor med in standa rd projec tions using Hologi c Seleni a Dimens ions tomosy nthesi s equipm ent (3D mammog emily) . 2D images were create d from the 3D datase t using C-View softwa re. The study was read with the assist ance of Comput er Aided Detect ion (CAD) softwa re. COMPAR ADRIAN: This was compar ed with previo us mammog rashel dated 2022, 2021, 2020 FINDIN GS: The breast s are hetero geneou sly dense, which may obscur e small masses . There are no findin gs to sugges t malign khushbu. IMPRES GI: Negati ve mammog melany showin g no change from previo us exams. BI-RAD S 1. Negati ve. Screen ing mammog rashel are recomm ended in one year Result s were mailed or given to the gregor rock. Interp reted By: Jabari thakkar MD Electr onical ly Signed By: Jabari thakkar MD on 2023 12:51 PM [email or web address] [facility] [address] , [place], [address], 10/13/2024 12:56:38 Result Notes Documentation Provider Name and Address Organization Details Recorded Time Mammo, Screening, Tomosynthesis, Bilateral, W/ Cad : [address] [place] [address] Patient Name: DAISY KRAUS Patient : 1970 Age: 51 years Patient Ordering Provider: NOHELIA DE LOS SANTOS EXAM DATE: 09/27/2022 EXAM: MG SCREENING DARLEEN MAMMOGRAM INDICATION: Routine screening. PROCEDURE: Multislice imaging of both breasts was performed in standard projections using Pro[employer] Dimensions tomosynthesis equipment (3D mammography). 2D images were created from the 3D dataset using C-View software. The study was read with the assistance of Computer Aided Detection (CAD) software. COMPARISON: This was compared with previous mammograms dated 09-26-2021, 09-22-2020, 07-21-2019 FINDINGS: The breasts are heterogeneously dense. This may lower the sensitivity of mammography. A heterogeneous nodular breast tissue. There is the suggestion of increased nodularity in the upper medial right breast recommend spot views of this area. If any abnormality persists recommend ultrasound . Left breast stable IMPRESSION: BI-RADS category 0, Incomplete. Needs additional imaging evaluation. Results were mailed or given to the patient. Interpreted By: Kareem Wilburn MD LIA DE LOS SANTOS, DO [address] [place] [address], [phone] 09/28/2022 13:11:14 Mammo, Diagnostic, Tomosynthesis, Unilateral, W/ Cad : [facility] [address] [place] [address] Patient Name: DAISY KRAUS Patient : 1970 Age: 52 years Patient Ordering Provider: NOHELIA DE LOS SANTOS EXAM DATE: 10/18/2022 EXAM: MG RT DIAG DARLEEN CALLBACK INDICATION: Nodule PROCEDURE: Multislice imaging of the right breast was performed including spot compression and mediolateral views using Prosonix Dyan Dimensions tomosynthesis equipment (3D mammography). 2D images were created from the 3D dataset using C-View software. COMPARISON: This is compared with prior mammograms dated 09/26/2021, 09/27/2022, 02/02/2021, 09/20/2020, 07/21/2019 FINDINGS: The right breast is heterogeneously dense. This reduces sensitivity of mammography. The breast parenchyma is quite nodular however with the benefit of spot compression imaging and additional views, no definite dominant true nodule or interval change is noted. The finding on recent screening appears to relate to summation IMPRESSION: BI-RADS category 2, Benign. Recommend follow-up screening mammogram in one year, on schedule COMMENT: Findings and recommendations were discussed with the patient. Interpreted By: Kareem Wilburn MD LIA DE LOS SANTOS DO [address] [place] [address], [phone], [facility] 10/18/2022 14:33:08 Mammo, Screening, Tomosynthesis, Bilateral, W/ Cad : [address] [address] Patient Name: DAISY KRAUS Patient : 1970 Age: 52 years Patient Ordering Provider: NOHELIA DE LOS SANTOS EXAM DATE: 10/02/2023 EXAM: MG SCREENING DARLEEN MAMMOGRAM INDICATION: Routine screening. PROCEDURE: Multislice imaging of both breasts was performed in standard projections using [employer] Dim[employer] tomosynthesis equipment (3D mammography). 2D images were created from the 3D dataset using C-View software. The study was read with the assistance of Computer Aided Detection (CAD) software. COMPARISON: This was compared with previous mammograms dated 10/18/2022, 09/27/2022, 09/26/2021, 02/02/2021, 09/22/2020 FINDINGS: The breasts are heterogeneously dense. This may lower the sensitivity of mammography. There is no suspicious mass or cluster of calcifications. No architectural distortion. Scattered areas of nodular asymmetry and heterogeneity with grossly stable pattern IMPRESSION: BI-RADS category 2, Benign. There is no evidence of malignancy. Screening mammograms are recommended in one year. Results were mailed or given to the patient. Interpreted By: Kareem Wilburn MD LIA DE LOS SANTOS DO [address] [place] [address], [phone], [facility] 10/03/2023 14:21:13 Mammo, Screening, Tomosynthesis, Bilateral, W/ Cad : [address] [place] [address] Patient Name: DAISY KRAUS Patient : 1970 Age: 54 years Patient Ordering Provider: NOHELIA DE LOS SANTOS EXAM DATE: 10/13/2024 EXAM: MG SCREENING DARLEEN MAMMOGRAM INDICATION: Routine screening. PROCEDURE: Multislice imaging of both breasts was performed in standard projections using Prosonix Dyan Dimensions tomosynthesis equipment (3D mammography). 2D images were created from the 3D dataset using C-View software. The study was read with the assistance of Computer Aided Detection (CAD) software. COMPARISON: This was compared with previous mammograms dated 10-02-2023, 09-27-2022, 09-26-2021 FINDINGS: The breasts are heterogeneously dense, which may obscure small masses. There are no findings to suggest malignancy. IMPRESSION: Negative mammogram showing no change from previous exams. BI-RADS 1. Negative. Screening mammograms are recommended in one year Results were mailed or given to the patient. Interpreted By: Jabari Shannon MD LIA DE LOS SANTOS DO [address] [place] [address], [phone], [facility] 10/13/2024 12:56:38 Problems Name Problem SNOMED Code Status Onset Date Resolution Date Notes Provider Name and Address Organization Details Recorded Time Hypothyroidis m [id number] Active 2014 Provide r: Helen Recinos; Status: Active Not Available [facility] 10:28:33 Notes:: Depression Screening* Date:11/24/2015 Problem Notes None recorded. Procedures Surgical History Date Name Laterality Status Provider Name and Address Organization Details Recorded Time 10/13/20 Date of Last Mammogram completed Becki Machuca [facility] 10/13/2024 09:05:06 10/04/20 22 IUD Replacement - Kyleena completed NOHELIA DE LOS SANTOS DO [address] [place], [address], [facility] 10/04/2022 09:42:09 10/04/20 22 Paracervical Block completed NOHELIA DE LOS SANTOS DO [address] [place], [address], [facility] 10/04/2022 09:43:16 07/21/20 19 Pap Smear collection completed WILFRID URBINA APRN [address] [place] [address], [phone], [facility] 07/21/2019 09:01:51 07/21/20 19 Date of Last Pap Smear completed Hany Crook [facility] 01/30/2021 08:30:05 03/06/20 19 IUD Replacement completed HELEN RECINOS MD [address] [place], [address], [facility] 03/06/2019 14:34:52 05/12/20 18 Pap Smear collection completed WILFRID URBINA APRN [address] [place], [address], [facility] 05/12/2018 09:30:25 Unlisted procedure shoulder completed Dolores Zamora [facility] 05/12/2018 08:54:42 cholecystectomy completed Hany Bruce [facility] 09/22/2020 08:58:37 Removal of tonsils completed Brennen madera [facility] 01/03/2017 08:04:02 Dilation and Curettage completed Danelle [facility] 01/03/2017 08:04:08 Imaging Results None recorded. Procedure Notes None recorded. Medical Equipment None Reported. Allergies No known drug allergies Medications Name Sig Start Date Stop Date Status Note LastModified by Organization Details LastModified Time terconazole 0.4 % vaginal cream Insert 1 applicato rful every day by vaginal route at bedtime for 7 days. 07/21 completed Not Available Not Available Not Available Lotrisone 1 %-0.05 % topical cream APPLY TO THE AFFECTED AND SURROUNDI NG AREAS OF SKIN BY TOPICAL ROUTE 2 TIMES PER DAY IN THE MORNING AND EVENING FOR 2 WEEKS 09/22 completed Not Available Not Available Not Available Diflucan 150 mg tablet Take 1 tablet po on Sat, then repeat 3 days later 09/27 completed Not Available Not Available Not Available sulfamethox azole 800 mg-trimetho prim 160 mg tablet Take 1 tablet every 12 hours by oral route for 7 days. 03/06 completed Not Available Not Available Not Available levothyroxi ne 100 mcg tablet TAKE ONE TABLET BY MOUTH EVERY DAY 2019 active Not Available Not Available Not Avai lable Vitamin D2 1,250 mcg (50,000 unit) capsule Take 1 capsule every week by oral route. 01/30 completed Not Available Not Available Not Available Synthroid active Not Available Not Tami ilable Not Available Awa 14 mcg/24 hr (up to 3 years) 13.5 mg intrauterin e device Take 1 device by intrauter ine route. 10/09 completed lot: [id number] [id number] [facility][id number]- [id number] 1 Not Available Not Available Not Available Kyleena 17.5 mcg/24 hr (up to 5 years) 19.5 mg intrauterin e device Take 1 device as needed by intrauter ine route. 2021 active Not Available Not Available Not Avai lable Vitals Date Recorded Body weight Systolic And Diastolic Provider Name and Address Organization Details Last Updated DateTime 09/27/2022 352230.47 g 150/100 mm[Hg] Becki Machuca [employer] [facility] 09/27/2022 08:20:45 Date Recorded Body weight Provider Name an d Address Organization Details Last Updated DateTime 10/04/2022 757407.69 g Becki Machuca [facility] 1 12/04/2021 09:02:59 Date Recorded Body weight Systolic And Diastolic Provider Name and Address Organization Details Last Updated DateTime 2023 276166.69 g 164/102 mm[Hg] Becki Machuca [employer] [facility] 2023 09:56:28 Date Recorded Body weight Systolic And Diastolic Provider Name and Address Organization Details Last Updated DateTime 10/13/2024 460408.5 g 122/76 mm[Hg] Becki Machuca [employer] [facility] 10/13/2024 09:04:46 Date Recorded Body weight Systolic And Diastolic Provider Name and Address Organization Details Last Updated DateTime 11/01/2022 600579.31 g 138/72 mm[Hg] Becki Machuca [employer] [facility] 11/01/2022 08:03:39 Social History Question Answer Notes LastModified by Organizat ion Details LastModified Time Tobacco Smoking Status [facility] 01/03/2017 08:03:52 What Is Your Level Of Caffeine Consumption? Heavy [id number] Information not available 05/12/2018 How Much Tobacco Do You Chew? None [email or web address] Information not available 09/22/2020 What Was The Date Of Your Most Recent Tobacco Screening? 09/26/2021 Information not available 09/26/2021 Has Tobacco Cessation Counseling Been Provided? Yes Information not available 09/26/2021 On What Date Was Tobacco Cessation Counseling Provided? 09/26/2021 Gregoria Answered No To The Tobacco Cessation Counseling Provided Question On 05/12/2018. Information not available 09/26/2021 Do You Have Symptoms Associated With Zika Virus (fever, Rash, Joint Pain, Or Conjunctivitis )? No Information not available 05/12/2018 Have You Recently (within The Last 12 Weeks, Or During A Current ) Traveled To Or Lived In A Zika-affected Area? No [email or web address] Information not available 05/12/2018 Sex: Female Functional Status Question Answer Note LastModified by Organizat ion Details LastModified Time Do you or have you ever used any other forms of tobacco or nicotine? No Information not available 09/26/2021 What is your level of alcohol consumption? Occasional [email or web address] Information not available 05/12/2018 Do you or have you ever used smokeless tobacco? Never used smokeless tobacco [email or web address] Information not available 09/22/2020 Do you or have you ever used e-cigarettes or vape? Never used electronic cigarettes [email or web address] Information not available 09/22/2020 Mental Status None recorded. Family History Relationship Description Onset Age of this Age Resolved Age Notes LastModified by Organization Details LastModified Time Maternal Aunt Family history of malignant neoplasm Lung, Breast (70) [email or web address] Not available 05/12/2018 08:53:42 Maternal Grandfather Heart disease [email or web address] Not available 05/12 08:53:11 Maternal Uncle Hypertensive disorder [email or web address] Not available 05/12 08:53:17 Paternal Grandmother Osteoporosis Not availabl e 05/12/2018 08:29:28 Medical History Condition Response Heart Problems N Other N Breast Cancer N Thyroid Problems Y Depression N Glaucoma N Lung Disease N Anemia N Immune System Disorder N Anesthesia Complications N Heart Attack (SD) N Deep Vein Thrombosis N Diabetes N Bleeding Disorder N Seizures/Epilepsy N Arthritis N AIDS/HIV N Hyperlipidemia N Cancer N Varicosities N Stroke N Hoarseness N Asthma N Shortness of Breath N Sleep Apnea N High Cholesterol N Hepatitis N Liver Disease N Headaches N Hypertension N Chicken Pox Y Kidney Disease N Gynecological History Statement/Question Response Abnormal Pap Y Regular Cycles N Date of Last Mammogram 10/13/2024 Flow [place] Date of LMP STIs/STDs Y Real Heavy Periods N HPV Vaccine N Duration of Flow (days) 4 Age at Menarche 11 Current Control Method IUD Painful Periods N Date of Last Colonoscopy Most Recent Bone Density Menses Monthly N Date of Last Pap Smear 07/21/2019 LMP Unknown Obstetrics History GPAL:G 2 P 2 0 0 2 Type Value Full Term 2 Living 2 Total 2 Immunizations Vaccine Type Date Status Note Provider Nam e and Address Organization Details Recorded Time COVID-19, mRNA, LNP-S, PF, 30 mcg/0.3 mL dose 1 completed Becki Machuca [facility] 10/03/2022 15:44:52 COVID-19, mRNA, LNP-S, PF, 30 mcg/0.3 mL dose 1 completed Becki Machuca [facility] 10/03/2022 15:44:52 Td (adult), 2 Lf tetanus toxoid, preservative free, adsorbed 7 completed [facility] 10/03/2022 15:44:52 Past Encounters Encounter ID Performer Location Encounter Start Date Encounter Closed Date Diagnosis/Indication Diagnosis SNOMED-CT Code Diagnosis ICD10 Code Diagnosis IMO Codes Diagnosis Note [id number] MD DANYELL NASCIMENTO [address] [place] [address] 01/03/2017 07:55:53 01/03/2017 08:23:58 Screening for malignant neoplasm of cervix 571233945 Z12.4 Hypothyroidism 46309080 E03.9 Screening for malignant neoplasm of breast 632557644 Z12.31 Gynecologi c examination 14810053 Z01.419 IUD check 750503464 Z30. 341 [id number] TRISH RIGGINS [address] [place] [address] 05/12/2018 08:41:06 05/12/2018 09:26:47 Gynecologic examination 74713151 Z01.419 Discussed SBEs IUD check 657800067 Z30. 431 Reviewed expected bldg pattern Discussed BC options Check benefits on Awa and Kyleena WIll call to schedule insertion - will need to be scheduled with Dr. Recinos Condoms until replacemen t History of abnormal cervical Papanicolaou smear 670547870 Z87.42 Pap smear pending Hypothyroidism 87884080 E03.9 Will call with results and send in refill Vaginitis 71418137 N76.0 Discussed txment and prevention If sx do not resolve after txment to RTC Recommend daily probiotic like Align Body mass index 30+ - obesity 839582729 Z68.37 Handout given with diet and exercise recommenda tions Elevated blood-pressure reading without diagnosis of hypertension 071785384 R03.0 Discussed BP diet and exercise She will cont checking at home and f/u with PCP if 3 or more readings of 140/90 or greater [id number] TRISH RIGGINS [facility] [address] [place] [address] 01/21/2019 09:14:07 01/21/2019 10:07:59 Vaginitis 98021454 N76.0 Wet mount = yeast Discussed txment and prevention No intercours e during txment OneSwab pending - will call to discuss Discussed restarting probiotics IUD check 621090411 Z30. 431 Condoms until replacemen t Replacemen t will need to be scheduled with Dr. Recinos Plan RTC in 1 month but pending cx results, may need to delay this Dyspareunia 67870331 N94 .10 Trial of Intrarosa - discussed signs of atrophy Samples and discount card given - she will call for script To complete vaginitis meds first, then begin Serum crea tinine above reference range 082880851 R79.89 Hyperglycemia 00636081 R 73.9 [id number] MD DANYELL NASCIMENTO [place] [address] [place] [address] 03/06/2019 12:50:24 03/06/2019 14:41:07 Removal of intrauterine device 40556487 Z30.432 Tolerated well by patient Insertion of intrauterine contraceptive device 37294472 Z30.430 Well tolerateda void tampons and intercours e for 2-3 days; effective immediatel yadvised use of NSAID's for 24-48 hrsstring check in [id number] [place] [address] 07/21/2019 08:27:38 07/21/2019 09:01:59 Gynecologic examination 86755010 Z01.419 Discussed SBEs IUD check 509238141 Z30. 431 Reviewed expected bldg pattern with method Just completed a period 3 days ago and hasn't noticed spotting since If irregular/ frequent spotting returns, to call for interventi on Hypothyroidism 03640316 E03.9 Will call with lab results Vitamin D deficiency 347 38010 E55.9 History of abnormal cervical Papanicolaou smear 241261267 Z87.42 Pap smear and HPV pending [id number] DO [address]ANYELL [address] [place] [address] 09/22/2020 08:47:32 09/22/2020 09:33:40 Gynecologic examination 86982897 Z01.419 Discussed pap smear guidelines with patient and importance of annual exams. Last pap was in July 2019 and NLIM/negat deric HPV. Due for next pap in July 2024 IUD check 429467825 Z30. 431 IUD string not seen, may need ultrasound prior to removal in [id number] [place] [address] 01/30/2021 08:11:50 01/30/2021 09:02:27 Mass of right breast 0815659733 1390557 N63.10 tiny nodule R breast near aereola (3:00, ~1.5cm from nipple) [id number] DO [address]ANY[address] [place] [address] 09/26/2021 08:19:34 09/26/2021 09:25:17 Gynecologic examination 74473983 Z01.419 Discussed pap smear guidelines with patient and importance of annual exams. Last pap was in July 2019 and NLIM/negat deric HPV. Due for next pap in July 2024 IUD check 743388494 Z30. 431 IUD string seen this year. Due for removal/ex change in 2021. Advised that if she wants to call the week prior to her appointmen t, we can check hormone labs to see if menopausal to know whethere to remove or replace the IUD Candidiasis of vagina 72 397842 B37.3 Will treat with Diflucan due to symptoms [id number] DO [address]ANYE[address] [place] [address] 09/27/2022 08:13:27 09/27/2022 08:59:59 Gynecologic examination 64466654 Z01.419 Discussed pap smear guidelines with patient and importance of annual exams. Last pap was in July 2019 and NLIM/negat deric HPV. Due for next pap in July 2024 Menopausal syndrome 1237 12604 N95.9 Will obtain labs before deciding to replace or remove IUD IUD check 239696605 Z30. 431 Due to be removed or exchanged this year. Will obtain labs before deciding to replace or remove IUD [id number] DO [address]ANY[address] [place] [address] 10/04/2022 08:42:31 10/04/2022 09:55:12 Removal of intrauterine device 61047267 Z30.432 Difficulty getting into cervix. Cervical block and #11 blade used. IUD removed in its entirety Insertion of intrauterine contraceptive device 56236973 Z30.430 IUD placed without difficulty . Patient tolerated well. Will have her return in 4 weeks for string check and ultrasound . [id number] DO [address]ANYE[address] [place] [address] 11/01/2022 07:56:04 11/01/2022 08:59:41 IUD check 889714761 Z30.431 IUD in correct position on ultrasound and string visualized on exam. Patient to return for annual exam, sooner if needed. [id number] DO [address] [place] [address] 2023 09:50:55 2023 10:40:41 Gynecologic examination 15522772 Z01.419 Discussed pap smear guidelines with patient and importance of annual exams. Last pap was in July 2019 and NLIM/negat deric HPV. Due for next pap in July 2024 IUD check 625075431 Z30. 431 IUD string visualized . To be removed/re placed in 2029 [id number] NOHELIA DE LOS SANTOS [facility] [address] [place] [address] 10/13/2024 09:01:08 10/13/2024 09:39:22 Screening for malignant neoplasm of cervix 995544933 Z12.4 Discussed pap smear guidelines and importance of annual exams. Pap collected today. Screening for malignant neoplasm of colon 489887595 Z12.11 IUD check 843579642 Z30. 431 IUD string visualized . To be removed/re placed in 2029 Health Concerns Section Related Observation LastModified by Organization Detai ls LastModified Time None Recorded Concern Status LastModified by Organization Details LastModified Time None Recorded Advance Directives Directive None Recorded Payers Insurance Date Sequence Insurance Name Policy Number Policy White Covered Member ID White Member ID Guarantor Name 10/13/2024 1 [place] [id number] Daisy Ogp [id number] Daisy Catrina 10/27/2024 1 UMR [id number] Daisy Catrina [id number] Daisy Catrina 09/28/2022 1 [employer] [place] [id number] Daisy Catrina [id number] Daisy Catrina 09/28/2022 1 [place] [id number] Daisy Catrina [id number] [facility] Notes Date Note Type Note Provider Name and Address Organization Details Recorded Time 09/27/2022 text/html ROS as noted in the HPI 51 y/o female here for annual exam. IUD doing well, does not have any periods. Due to be removed/replaced. Denies hot flashes, night sweats. History of abnormal pap over 20 years ago. Last one was in 2019 and NLIM/negative HPV. Has mammogram today. Denies abnormal vaginal bleeding, vaginal discharge, vaginal itching. NOHELIA CHURCHON [address] [place], [address], [facility] 09/27/2022 09:01:39 10/04/2022 text/html Patient here for IUD replacement. No complaints NOHELIA DE LOS SANTOS [address] [place], [address], [facility] 10/04/2022 09:44:30 11/01/2022 text/html Patient here for string check. Admits to some mild cramping and spotting but has otherwise been doing well with the IUD NOHELIA DE LOS SANTOS [address] [place], [address], [facility] 11/01/2022 08:42:20 2023 text/html ROS as noted in the HPI 53 y/o female here for annual exam. IUD doing well, does not have any periods. Denies hot flashes, night sweats. History of abnormal pap over 20 years ago. Last one was in 2019 and NLIM/negative HPV. Normal mammogram earlier this month. Denies abnormal vaginal bleeding, vaginal discharge, vaginal itching. NOHELIA DE LOS SANTOS [address] [place], [address], [facility] 2023 10:38:06 10/13/2024 text/html ROS as noted in the HPI 54 y/o female here for annual exam. IUD doing well, does not have any periods. Denies hot flashes, night sweats. History of abnormal pap over 20 years ago. Last one was in 2019 and NLIM/negative HPV. Mammogram was earlier today. Denies abnormal vaginal bleeding, vaginal discharge, vaginal itching. Has not yet had colonoscopy NOHELIA DE LOS SANTOS [address] [place], [address], [facility] 10/13/2024 10:28:11 OBGyn Episode No OBEpisode recorded.
== END 2025-11-22 23:59 | disposition home or self-care (01) ==
LOC: RAD 07:35
PROVIDERS: PCP Family Medicine; Visit Provider Nurse Practitioner
DX: M47.816 Spondylosis without myelopathy or radiculopathy, lumbar region (principal); M47.817 Spondylosis without myelopathy or radiculopathy, lumbosacral region; M48.061 Spinal stenosis, lumbar region without neurogenic claudication
CPT/HCPCS: 72148